=== PATIENT | male | born 2005 | race Two or more races ===

== ENCOUNTER 2025-03-09 07:00 | Day surgery (SDC) | payer MEDICAID, SELFPAY ==
[2025-03-08 07:10] VITALS: BMI 37.2
[2025-03-08 08:57] LABS: Basophils # (Auto) 0.1 Thou/mm3 (0.0-0.2); Basophils % (Auto) 1 % (0-2.5); Eosinophils # (Auto) 0.2 Thou/mm3 (0.0-0.5); Eosinophils % (Auto) 3 % (0-10); Hemoglobin 15.8 g/dL (13.5-16.0); Immature Granulocytes % (Auto) 0 % (0-0); Immature Granulocytes Auto 0.02 Thou/mm3 (0.00-0.00); Lymphocytes % (Auto) 31 % (10-50); Mean Corpuscular HGB Conc 35.1 g/dl (31.0-37.0); Mean Corpuscular Hemoglobin 30.3 pg (25.0-35.0); Mean Corpuscular Volume 86 fL (80-100); Monocytes # (Auto) 0.4 Thou/mm3 (0.0-0.8); Monocytes % (Auto) 6 % (0-12); Neutrophils # (Auto) 3.8 Thou/mm3 (1.8-7.7); Neutrophils % (Auto) 58 % (37-80); Nucleated Red Blood Cell % 0 /100 WBC (0); Platelet Count 314 Thou/mm3 (140-440); RDW Standard Deviation 39.4 fL (35.1-43.9); Red Blood Count 5.21 Miln/mm3 (4.50-5.90); White Blood Count 6.6 Thou/mm3 (4.5-11.0)
[2025-03-08 09:13] LABS: Anion Gap 9 (7-16); BUN/Creatinine Ratio 15 Ratio (12-20); Blood Urea Nitrogen 12 mg/dL (9-23); Carbon Dioxide 26.8 mMol/L (20.0-31.0); Chloride 107 mMol/L (98-107); Creatinine (Component) 0.8 mg/dL (0.6-1.3); Estimated Creatinine Clearance 178.1 mL/min (>60); Glucose 95 mg/dL (74-106); Osmolality,Calculated 284 (275-295); Sodium 143 mMol/L (136-145); eGFR > 60 See Note
--- NOTE | 2025-03-08 17:02 | ESHP_ITS ---
RE: FRANKLIN GALVAN : 2005 DATE OF ADMISSION: 03/08/2025 Franklin Galvan is a 20-year-old gentleman with autism and phimosis. Previous surgery is none. His hemoglobin A1c is 4.7. ALLERGIES ARE NONE KNOWN. He used to take thyroid medication. Clincal examination reveals HEENT normal. Neck supple. Lungs are clear. Heart sounds are normal. Abdomen is soft. He has a phimosis. 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 IMPRESSION: 1. Phimosis. 2. Right scrotal swelling, small. 3. Autism. PLAN: Circumcision. Planned procedure, risks and complications have been discussed with the patient and his mother. They have understood them and agreed to proceed. DT: 16:10:28 TT: 17:00:00 Ref: [id number] - TID: [id number]
[2025-03-09] VITALS (9 sets, daily range): BP systolic 94–137; BP diastolic 49–89; PULSE 70–86; RESP 16–20; TEMP 36.3–36.8; O2SAT 93–98; BMI 39.5
--- NOTE | 2025-03-09 08:12 | SUR.PREOP ---
Mother signed all paperwork including consent due to autism. Pt. does not understand risks and benefits of having the surgery. Julia LOPEZ director or surgical services verified that it is OK for mom to sign consents instead of patient.
[2025-03-09] MEDS: MIDAZOLAM INJ 1 MG/ML VIAL 2 ML 2 MG IV (10:03)
--- NOTE | 2025-03-09 11:20 | SUR.PHASEI ---
Pt. arrived to recovery via gurney, eyes closed, Dr. Ma inserted oral airway upon arrival to recovery d/t 02 saturation of 91 on 4 liters 02 via NC. Lung sounds clear and diminished, equal expansion, minimal effort. Dressing to penis, telfa, 4x4 gauze, coband and tape in place, no active bleeding noted. Received report from Dr. Ma and Tadeo LOPEZ.
--- NOTE | 2025-03-09 11:53 | SUR.PHASEII ---
1153: Pt. AAOx4, vitals stable, breathing unlabored, complaining of 4/10 pain, dressing to penis CDI, report received from Clara LOPEZ.
[2025-03-09] MEDS: fentaNYL CIT INJ 50 mCg/ML AMP 2ML 25 MCG IV ×3 (11:55→12:11)
--- NOTE | 2025-03-09 12:36 | SUR.PHASEII ---
1236: Pt. AAOx4, vitals stable, breathing unlabored, no complaint of pain or nausea, dressing to penis CDI, no active bleed noted, pt. tolerated sips of juice well, pt. ambulated to wheelchair with steady gait and no assist, no complications. Gave discharge instructions to the pt. and his ride, both verbalized understanding and had no further questions. Pt. left with all personal belongings.
--- NOTE | 2025-03-09 13:48 | ESOP_ITS ---
RE: LIZ HAY : 2005 DATE OF OPERATION: 03/09/2025 PREOPERATIVE DIAGNOSIS: Very tight phimosis. POSTOPERATIVE DIAGNOSIS: Very tight phimosis with external urethral meatal stenosis. PROCEDURE PERFORMED: Circumcision and dilation of the external urethral meatus. ANESTHESIA: General by Dr. Ma. INDICATION: The patient is a 20-year-old gentleman with autism. He was brought in to my office by his mother with a very tight phimosis. Circumcision was then arranged. Planned procedure, risks, and complications have been discussed with the patient and the mother. They have understood them and agreed to proceed. DESCRIPTION OF PROCEDURE: After the patient was brought to the operating table under adequate general anesthesia and supine position, parts were prepped and draped in the usual fashion. The patient has extremely tight phimosis. It was very hard to find even opening in the foreskin where the patient urinates from. Circumcision was then carried out in a standard fashion by excising the foreskin in a circumferential manner at the level of lyles glandis. The patient had meatal stenosis, which was dilated using urethral dilators. Complete hemostasis was obtained. The skin was reapproximated back by placing interrupted sutures of 3-0 chromic catgut. A sterile dressing was then applied. A local anesthetic was injected at the base of the penis for the control of postoperative pain. The patient was then transferred to the recovery room in a satisfactory condition having tolerated the entire procedure well. Sponge count and needle count at the end of the procedure was found to be correct. Estimated blood loss was approximately 5 mL. DT: 11:36:10 TT: 13:46:00 Ref: [id number] - TID: [id number]
== END 2025-03-09 12:36 | disposition home or self-care (01) ==
PROVIDERS: PCP Family Medicine; Referring Provider Surgery; Visit Provider Surgery
PROC: (CPT 54161; principal; 2025-03-09 09:30)
DX: N47.1 Phimosis (principal); N35.911 Unspecified urethral stricture, male, meatal; N50.89 Other specified disorders of the male genital organs; F84.0 Autistic disorder
CPT/HCPCS: 54161; 36415; 80048; 85025; A4217; A4649; J0690; J1885; J2250; J2405; J2704; J2765; J3010; J3490; A9270; J0665